=== PATIENT | female | born 1960 | race Caucasian/White ===

== ENCOUNTER 2016-07-07 18:46 | Observation (INO) | payer MEDICARE, OTHER ==
[~2016-07-07] VITALS: Ht 143.5 cm; Wt 69.0 kg
[~2016-07-07 18:46] MED LIST: ALLERGY10 M1 PO; ALTACE10 MG PO; ASPIRIN 325MG325 MG PO; BENADRYL 25MG C25 MG PO; BENTYL 10MG CAP10 MG PO; FLEXERIL 10 MG10 MG PO; LASIX20 MG PO; NORCO 10-325 T1 EACH PO; OMEPRAZOLE40 MG PO; POTASSIUM CHLO20 ME2 PO; ZANTAC300 MG PO; ZOCOR40 MG PO
[2016-07-07 19:42] LABS: HEMOGLOBIN 14.7 gm/dl (12.3-15.3); RED BLOOD COUNT 5.13 M/UL (4.00-5.10); WHITE BLOOD COUNT 10.6 K/UL (4.5-11.0)
[2016-07-07 20:16] LABS: BUN/CREATININE RATIO 17 (0-10)
[2016-07-08] MEDS ORDERED: FLONASE 0.05% N16 GM (00:31)
[2016-07-08] MEDS ORDERED: IBUPROFEN800 MG PO (00:32)
[2016-07-08] MEDS ORDERED: NEURONTIN 300300 MG PO (00:48)
[2016-07-08] MEDS ORDERED: ASPIRIN81 MG PO (00:57)
[2016-07-08] MEDS ORDERED: LASIX20 MG PO (00:57)
[2016-07-08] MEDS ORDERED: LORADAMED10 MG PO (00:58)
[2016-07-08] MEDS ORDERED: PROTONIX40 MG PO (11:38)
== END 2016-07-08 12:52 | disposition home or self-care (01) ==
LOC: ER1 18:46 → MED SURG 4 22:04 → ZEROF 22:04 → M/S 23:37 → MED SURG 4 07-08
PROVIDERS: Emergency Medicine; ADMIT Internal Medicine
DX: R07.9 Chest pain, unspecified (principal); I10 Essential (primary) hypertension; E78.5 Hyperlipidemia, unspecified; K21.9 Gastro-esophageal reflux disease without esophagitis; J44.9 Chronic obstructive pulmonary disease, unspecified; F17.210 Nicotine dependence, cigarettes, uncomplicated; Z88.5 Allergy status to narcotic agent; Z88.8 Allergy status to other drugs, medicaments and biological substances; Z79.899 Other long term (current) drug therapy; Z90.49 Acquired absence of other specified parts of digestive tract
CPT/HCPCS: 36415; 70450; 71020; 80053; 80061; 82550; 82553; 83690; 83880; 84443; 84484; 85025; 85610; 85730; 93005; 99285; G0378

== ENCOUNTER 2016-08-24 19:46 | Emergency (ER) | payer MEDICARE, OTHER ==
[~2016-08-24 19:46] MED LIST changes: +ASPIRIN81 MG PO; +FLONASE 0.05% N16 GM; +IBUPROFEN800 MG PO; +LORADAMED10 MG PO; +NEURONTIN 300300 MG PO; +PROTONIX40 MG PO
[2016-08-24 21:01] LABS: HEMOGLOBIN 13.4 gm/dl (12.3-15.3); RED BLOOD COUNT 4.64 M/UL (4.00-5.10); WHITE BLOOD COUNT 22.6 K/UL (4.5-11.0)
[2016-08-24 21:27] LABS: BUN/CREATININE RATIO 28 (0-10)
== END 2016-08-25 01:10 | disposition home or self-care (01) ==
LOC: ER1 19:46
PROVIDERS: Student in an Organized Health Care Education/Training Program
DX: J44.1 Chronic obstructive pulmonary disease with (acute) exacerbation (principal); I10 Essential (primary) hypertension; F17.210 Nicotine dependence, cigarettes, uncomplicated; Z88.5 Allergy status to narcotic agent; Z90.49 Acquired absence of other specified parts of digestive tract
CPT/HCPCS: 36415; 71020; 80053; 82550; 82553; 83874; 84484; 85025; 85379; 93005; 96374; 99285; J2930